=== PATIENT | male | born 1955 | race Caucasian/White ===

== ENCOUNTER 2018-04-29 08:45 | Observation (INO) | payer OTHER, BC ==
[2018-04-29 09:22] LABS: #Basophils 0.1 thou/uL (0.0-0.2); #Eosinphils 0.1 thou/uL (0.0-0.7); #Lymphocytes 2.5 thou/uL (1.20-3.40); #Monocytes 0.4 thou/uL (0.11-0.59); #Neutrophils 2.7 thou/uL (1.40-6.50); %Basophils 1.1 % (0.0-1.0); %Eosinophils 2.1 % (0.0-10.0); %Lymphocytes 43.3 % (21.0-51.0); %Monocytes 7.3 % (0.0-10.0); %Neutrophils 46.2 % (42.0-75.0); Hemoglobin 16.1 g/dL (14.0-18.0); Mean Corpuscular Hemoglobin 33.3 pg (27.0-31.0); Mean Corpuscular Volume 94.9 fL (78.0-98.0); Mean Platelet Volume 6.7 fL (7.4-10.4); Platelet Count 288 thou/uL (130-400); RBC Distribution Width 11.5 % (11.5-14.5); Red Blood Cell (RBC) Count 4.85 mill/uL (4.70-6.10); White Blood Cell (WBC) Count 5.7 thou/uL (4.8-10.8)
--- NOTE | 2018-04-29 09:32 | CT ---
NONCONTRAST HEAD CT: History: Syncopal episode. Comparison: None. Technique: Noncontrast head CT is performed from skull base to skull vertex. FINDINGS: No parenchymal hemorrhage. No extraaxial hematoma. No midline shift. Basilar cisterns are patent. Bra in volume is age appropriate. Cortical vasquez white matter differentiation is preserved. Ventricles and sulci are patent and symmetric. Adequate aeration of the sinuses and mastoid air cells. Calvarium is intact. IMPRESSION: No acute intracranial process. POS: [facility]
[2018-04-29 09:38] LABS: ALT (SGPT) 19 U/L (8-55); AST (SGOT) 17 U/L (5-34); Albumin 4.1 g/dL (3.4-4.8); Alkaline Phosphatase 68 U/L (40-150); Anion Gap 9 mmol/L (10-20); BUN (Urea Nitrogen) 19 mg/dL (8.4-25.7); Bilirubin, Total 0.8 mg/dL (0.2-1.2); CK (CPK) 60 U/L (30-200); Calc. Creatinine Clearance 0 mL/min (70-130); Calcium 9.4 mg/dL (7.8-10.44); Carbon Dioxide 30 mmol/L (23-31); Chloride 104 mmol/L (98-107); Estimated GFR-MDRD 90; Globulin 2.8 g/dL (2.4-3.5); Glucose 114 mg/dL (80-115); Lipase 23 U/L (8-78); Potassium 3.7 mmol/L (3.5-5.1); Protein, Total 6.9 g/dL (5.8-8.1); Sodium 139 mmol/L (136-145)
--- NOTE | 2018-04-29 09:40 | RAD ---
SINGLE VIEW OF THE CHEST: Comparison: None. History: Syncope, collapse. FINDINGS: Single view of the chest shows a normal sized cardiomediastinal silhouette. There is no evidence of c onsolidation, mass, or pleural effusion. The bones are unremarkable. IMPRESSION: No evidence of acute cardiopulmonary disease. POS: [facility]
--- NOTE | 2018-04-29 09:40 | RAD ---
FOUR VIEWS LEFT ELBOW: Comparison: None. History: Fall in the bathroom with left elbow trauma and pain. FINDINGS: Four views of the left elbow shows no evidence of acute fracture or dislocation. No elbow effusion is seen. No degenerative changes are present. IMPRESSION: Unremarkable exam. POS: [facility]
[2018-04-29 11:12] LABS: Bilirubin Negative (Negative); Blood, Urine Negative (Negative); Clarity CLEAR (Clear); Glucose, Urine (Dipstick) Negative (Negative); Leukocyte Negative (Negative); Nitrite Negative (Negative); Protein, Urine (Dipstick) Negative (Neg-Trace); Specific Gravity, Urine 1.026 (1.002-1.036); Urobilinogen 0.2 mg/dL (0.2-1.0); pH, Urine 5.5 (5.0-9.0)
[2018-04-29 12:56] LABS: Troponin I Less than 0.010 ng/mL (< 0.028)
[2018-04-29] MEDS ORDERED: Ondansetron ODT 4 MG TAB SL PRN (13:47)
[2018-04-29] MEDS ORDERED: Ondansetron PF 4 MG/2 ML Vial IVP PRN ×2 (13:47→15:13)
[2018-04-29] MEDS ORDERED: Acetaminophen 325 MG TAB PO PRN ×2 (13:47→15:13)
[2018-04-29 13:50] VITALS: BMI 24.5
[2018-04-29] MEDS ORDERED: Calcium Carbonate 500 MG ChewTAB PO PRN (15:13)
[2018-04-29] MEDS ORDERED: Ondansetron ODT 4 MG TAB PO PRN (15:13)
[2018-04-29] MEDS ORDERED: Senokot S 8.6-50 MG TAB PO PRN (15:13)
[2018-04-29] MEDS ORDERED: Nitroglycerin 0.4 MG TAB (25 Tab Bottle) PO PRN (15:13)
[2018-04-29 17:11] LABS: Troponin I Less than 0.010 ng/mL (< 0.028)
--- NOTE | 2018-04-29 19:25 | ULT ---
CAROTID ULTRASOUND 04/29/18 COMPARISON: None. HISTORY: Syncope. TECHNIQUE: Multiplanar vasquez scale and color doppler images were obtained in a carotid ultrasound. Spectral yvonne sis of the doppler waveforms were performed. No significant plaque is seen in either common or internal carotid artery. The doppler waveforms are normal bilaterally. Peak systolic velocity in the right ICA is 92 cm/s. Peak systolic velocity in the right CCA is 112 cm /s. The right ICA/CCA ratio is 0.8. Peak systolic velocity in the left ICA is 104 cm/s. Peak systolic velocity in the left CCA is 125 cm/ s. The left ICA/CCA ratio is 0.8. Both vertebral arteries demonstrate antegrade flow without focal stenosis. IMPRESSION: No evidence of hemodynamically significant stenosis. POS: [facility]
--- NOTE | 2018-04-30 00:46 | HP ---
PRIMARY CARE PHYSICIAN: Out of town physician in [place]. CODE STATUS: Full code. CHIEF COMPLAINT: Syncopal episode. HISTORY OF PRESENT ILLNESS: Mr. Mcintosh is a pleasant 63-year-old male with past medical history of hypertension, he had stated that he is a fairly healthy amelie. He was recently started on amlodipine 2.5 mg daily for high blood pressure. He states early this morning, he was woken out of his sleep with a leg cramp, which he tends to get chronically. He had then walked over to the bathroom and as he was trying to urinate, he went to turn and ended up collapsing on the floor. He states he has very little memory of this episode, he had stated that he woke up on the ground and he sat up on the bathroom floor. He had reported some diaphoresis at that time. He had denied any pain, denied headache, blurred vision, dizziness, chest pain, shortness of breath or abdominal pain. He had denied any nausea or vomiting. He states his significant other, Geena, had then called for an ambulance and then he proceeded to go to the ER. Upon arrival to [facility], his blood pressure was found to be elevated at 162/98. While sitting in the ER, this had then improved to 135/99. He had denied any further complaints at that time. He denied chest pain, shortness of breath, or abdominal pain. No dizziness or headache. His left elbow was found to be tender to palpation, unlikely secondary to fall. However, elbow x-ray was obtained and was unremarkable and showed no evidence of acute fracture or dislocation. CT of brain was also obtained and found no acute intracranial process. Chest x-ray was also obtained and showed no evidence of acute cardiopulmonary disease. His labs were found to be essentially unremarkable. However, his prolactin was found elevated at 30.56. This was a concern for possible seizure. Therefore, it was determined that patient would be admitted under observation for further workup of his symptoms. PAST MEDICAL HISTORY: Hypertension, hyperlipidemia, not on medication. 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 PSYCHIATRIC HISTORY: Denies any psychiatric history at this time. SOCIAL HISTORY: Does report social alcohol use, however, this is very rarely with 1 to 3 drinks possibly every other month. He denies drug use or tobacco use. REVIEW OF SYSTEMS: CONSTITUTIONAL: Denies fever or chills. Denies any weight loss or weight gain. EYES: Denies any eye redness, eye discharge, eye changes, or vision changes. ENT: Denies any sore throat or trouble swallowing. Denies any ringing in his ears or loss of hearing. CARDIOVASCULAR: Denies chest pain or palpitations. Does report some elevated blood pressure, for which he takes amlodipine. RESPIRATORY: Denies cough, shortness of breath, or wheezing. GASTROINTESTINAL: Denies abdominal pain, constipation, nausea, vomiting, or diarrhea. MUSCULOSKELETAL: Did report a muscle spasm in his leg. However, he states he gets this all the time, which was just mild and has since resolved since arriving to the hospital. Denies weakness or further pain. SKIN: Denies any rash, redness, or lesions. NEUROLOGICAL: Denies any focal weakness. Denies any history of seizure, did report a syncopal episode early this morning in the bathroom. However, no history of syncopal like episode in the past. PSYCHIATRIC: Denies any anxiety and depression. No suicidal or homicidal ideation at this time. ALLERGIES: NO KNOWN DRUG ALLERGIES. HOME MEDICATIONS: Amlodipine 2.5 mg p.o. daily. PHYSICAL EXAMINATION: VITAL SIGNS: BP 126/66, pulse 65, respirations 12, temperature 98 degrees Fahrenheit, O2 saturations 99% on room air. General: Alert and oriented x3. No acute distress noted. HEAD: Atraumatic, normocephalic. ENT: Pupils round, reactive to light. Extraocular muscles intact. Nose and throat are clear. Oropharynx is without erythema or exudates. Trachea midline. Uvula midline. NECK: Supple. No bruits. CARDIOVASCULAR: Positive S1, S2. Regular rate and rhythm. No murmur noted. RESPIRATORY: Clear to auscultation bilaterally. No wheezes, no rhonchi noted. MUSCULOSKELETAL: Strength 5+ bilaterally upper and lower extremities. Moves all extremities equally. Pedal pulses 2+ bilaterally. Radial pulses 2+ bilaterally. No edema noted. ABDOMEN: Soft, nontender. Bowel sounds present. No rebound. No rigidity. SKIN: Warm, dry, and intact. No lesions. No bruising noted. NEUROLOGIC: Cranial nerves 2-12 intact. No focal deficits noted. Deep tendon reflexes intact. Strength 5+ bilaterally. PSYCHIATRIC: Good mood and affect. LABORATORY DATA: WBC 5.7, RBC 4.85, hemoglobin 16.1, sodium 139, potassium 3.7, creatinine 0.86, estimated GFR 90, glucose 101, magnesium 2.5, AST 17, ALT 19, alkaline phosphatase 68, creatine kinase 60. Troponin less than 0.010 x3. Lipase 23. Prolactin 30.56. Urinalysis showed trace ketones, otherwise unremarkable. DIAGNOSTIC IMAGING: Elbow x-ray was unremarkable and showed no acute fractures or dislocation. CT brain showed no acute intracranial process at this time. Chest x-ray showed no evidence of acute cardiopulmonary disease. ASSESSMENT/PLAN: 1. Syncope, possibility of seizure with an elevated prolactin level of 30.56. We will recheck prolactin in the morning. We will order echocardiogram and carotid Dopplers to rule out cardiogenic causes. We will place consult for Neurology Services, Dr. Mcguire for further evaluation and recommendations. 2. Hypertension. Check orthostatic vital signs to rule out orthostatic hypotension that could have caused his syncopal episode, continue his home medication of amlodipine 2.5 mg daily. Had IV hydralazine as needed for systolic blood pressure greater than 170. Further changes pending the patient progress and workup. Start on aspirin 325 mg p.o. daily. 3. Deep venous thrombosis prophylaxis with SCDs, placed the patient on walking program. 4. GI prophylaxis with Tums as needed for heartburn or indigestion and started on Zofran as needed for nausea. DISPOSITION: Further medical management and disposition pending patient progress and workup. Job ID: [id number]
--- NOTE | 2018-04-30 00:59 | CON ---
DATE OF CONSULTATION: 04/29/2018 TYPE OF CONSULTATION: Neurology CONSULTING PHYSICIAN: Hospitalist Service. IMPRESSION: Syncope. PLAN: Monitor blood pressure and followup with his cleaning associate. HISTORY OF PRESENT ILLNESS: Mr. Mcintosh is a 63-year-old man, who is a professor at the [employer]. He reports being started on amlodipine about a week ago. He had developed some calf cramps and jumped up from the bed the morning prior to admission. He was trying to walk them off and then started to feel woozy. His grabbed him and to stabilize him. He became pale, cold, clammy, and ashen in appearance. She helped him slump down to the floor, where he lost a brief interval of time. He awoke while sitting on the floor and she helped him up. He thought he needed to urinate and so she left the room. He was standing at the toilet when he suddenly lost consciousness again. She heard a thump and ran back in to find him prone on the floor. There was no seizure activity. Again, he was cold and clammy when she examined him. She did not check his vital signs. EMS was called and he was brought into the hospital. He was told his blood pressure was low, but then came back to normal. He denies any similar events like this. He has no past neurologic history. His CT of the brain was unremarkable. He had an EEG done, which was also normal in appearance without any epileptiform features. His prolactin level was 30. Remainder of his lab work was unremarkable. PAST MEDICAL HISTORY: Hypertension. ALLERGIES: NONE. SOCIAL HISTORY: No tobacco or drug use. FAMILY HISTORY: Noncontributory. MEDICATION LIST: Reviewed. REVIEW OF SYSTEMS: No complaint of headache, nausea, vomiting, vertigo, slurred speech, chest pain, palpitations, or shortness of breath. PHYSICAL EXAMINATION: GENERAL: He is a healthy-appearing middle-aged man, in no distress. VITAL SIGNS: Stable and he is afebrile. HEENT: Within normal limits. NECK: Supple. EXTREMITIES: No cyanosis. NEUROLOGIC: Alert and appropriate. His speech is fluent and clear. His exam is nonfocal. SUMMARY: A middle-aged man recently started on amlodipine, who had a syncopal episode when he first got out of bed in the morning. His workup neurologically is unremarkable. His EKG shows normal sinus rhythm. I suspect that he had a vasovagal event. I do not see any need for further neurologic workup. Job ID: [id number]
[2018-04-30] MEDS ORDERED: Amlodipine 5 MG TAB PO SCH (09:00)
[2018-04-30] MEDS ORDERED: Aspirin 325 MG TAB PO SCH (09:00)
[2018-04-30 13:06] VITALS: BP 153/78; TEMP 97.4
--- NOTE | 2018-04-30 14:31 | EEG ---
Referring Physician: PORUBSKY EEG # [id number] TEST TYPE: ROUTINE PORTABLE INPATIENT REPORT: AN EEG USING THE [employer]NATIONAL TEN-TWENTY SYSTEM OF ELECTRODE PLACEMENT WAS PERFORMED. The waking background is a 9 hertz alpha frequency. The patient became drowsy, but no sleep was seen. Hyperventilation and photic stimulation were unremarkable. No epileptiform features were present. IMPRESSION: THIS IS A NORMAL AWAKE AND DROWSY EEG. Manager Star: APRIL Land Commissioner: EEG.SATHISH DELGADO
--- NOTE | 2018-04-30 15:37 | EKG ---
Test Reason : Blood Pressure : / mmHG Vent. Rate : 055 BPM Atrial Rate : 055 BPM P-R Int : 176 ms QRS Dur : 094 ms QT Int : 448 ms P-R-T Axes : 064 061 054 degrees QTc Int : 428 ms Sinus bradycardia Otherwise normal ECG Confirmed by JENNIFER SRIVASTAVA ([id number]), television news video editor KADE CERDA ([id number]) on 04/30/2018 3:37:07 PM Referred By: Confirmed By:JENNIFER SRIVASTAVA
== END 2018-04-30 14:01 | disposition home or self-care (01) ==
LOC: ERS 08:45 → 2SW 11:08
PROVIDERS: ADMIT Family Medicine; ATTEND Family Medicine
DX: R55 Syncope and collapse (principal); I10 Essential (primary) hypertension; E78.5 Hyperlipidemia, unspecified; Z98.890 Other specified postprocedural states
CPT/HCPCS: 36415; 36416; 70450; 71045; 80053; 81003; 82550; 83690; 83735; 84146; 84484; 85025; 93005; 93306; 93880; 94760; 95816; 95819; G0378

== ENCOUNTER 2020-07-09 06:41 | Emergency (ER) | payer BC ==
[2020-07-09 07:19] LABS: #Basophils 0.1 thou/uL (0.0-0.2); #Eosinphils 0.2 thou/uL (0.0-0.7); #Lymphocytes 3.6 thou/uL (1.20-3.40); #Monocytes 0.6 thou/uL (0.11-0.59); %Basophils 1.4 % (0.0-1.0); %Eosinophils 2.9 % (0.0-10.0); %Lymphocytes 47.7 % (21.0-51.0); %Monocytes 8.1 % (0.0-10.0); Hemoglobin 14.9 g/dL (14.0-18.0); Mean Corpuscular HGB CONC 33.8 g/dL (32.0-36.0); Mean Corpuscular Hemoglobin 32.2 pg (27.0-31.0); Mean Corpuscular Volume 95.2 fL (78.0-98.0); Mean Platelet Volume 6.6 fL (7.4-10.4); Platelet Count 261 thou/uL (130-400); RBC Distribution Width 11.5 % (11.5-14.5); Red Blood Cell (RBC) Count 4.63 mill/uL (4.70-6.10); White Blood Cell (WBC) Count 7.6 thou/uL (4.8-10.8)
[2020-07-09 07:41] LABS: ALT (SGPT) 22 U/L (8-55); AST (SGOT) 21 U/L (5-34); Alkaline Phosphatase 68 U/L (40-110); Anion Gap 11 mmol/L (10-20); BUN (Urea Nitrogen) 14 mg/dL (8.4-25.7); Bilirubin, Total 0.3 mg/dL (0.2-1.2); Calc. Creatinine Clearance 0 mL/min (70-130); Calcium 8.8 mg/dL (7.8-10.44); Carbon Dioxide 30 mmol/L (23-31); Chloride 104 mmol/L (98-107); Globulin 2.4 g/dL (2.4-3.5); Glucose 119 mg/dL (80-115); Potassium 4.3 mmol/L (3.5-5.1); Protein, Total 6.4 g/dL (5.8-8.1); Sodium 141 mmol/L (136-145)
--- NOTE | 2020-07-09 07:47 | CT ---
CT Brain WO Con History: Fall. Trauma Comparison: CT brain April 29, 2018 Findings: Likely nondisplaced right infraorbital rim fracture. There is also a minimally displaced fr acture of the right lateral orbital wall. Mildly impacted fracture of the right zygomatic arch. No definite retrobulbar hematoma. No acute hemorrhage or infarct. No midline shift or mass effect. No medial orbital wall fracture. The left zygomaticomaxillary complex is intact. Pterygoid plates are intact as well as nasal bones. Impression: Right zygomaticomaxillary complex fracture without acute posttraumatic intracranial seque la.
--- NOTE | 2020-07-09 07:54 | CT ---
CT Facial Bones WO Con History: Fall Comparison: None. Findings: Minimally medially displaced right lateral orbital wall fracture. Fracture of the right zyg omatic arch with mild impaction. Also fracture of the right anterior maxillary sinus wall extending to the infraorbital rim without significant displacement. Fracture extends into the infraorbital fora men anteriorly. Fracture is also present of the lateral maxillary sinus wall extending in a caudal direction to the a lveolar bone of the missing first right maxillary molar. The mandible itself is intact. Normal location of the temporomandibular joints. Cervical spine alignm ent is maintained. Moderate narrowing of the atlantodental interval with mild ossification of the apical ligaments. Impression: Right zygomaticomaxillary complex fracture with the lateral maxillary sinus fracture exte nding into the alveolar bone at the missing tooth socket right maxillary first molar. No retrobulbar hematoma or exophthalmos.
[2020-07-09] MEDS ORDERED: Ketorolac Tromethamine 30 MG/ML VIAL ONE (08:18)
[2020-07-09 08:42] LABS: Bilirubin Negative (Negative); Blood, Urine Negative (Negative); Clarity Clear (Clear); Glucose, Urine (Dipstick) Normal (Negative); Ketone, Urine Negative (Negative); Leukocyte Negative Leu/uL (Negative); Nitrite Negative (Negative); Protein, Urine (Dipstick) Negative (Neg-Trace); Urobilinogen Normal mg/dL (Less than 2); pH, Urine 7.5 (5.0-9.0)
== END 2020-07-09 09:15 | disposition home or self-care (01) ==
LOC: ERS 06:41
DX: R55 Syncope and collapse (principal); S02.40EA Zygomatic fracture, right side, initial encounter for closed fracture; S02.42XA Fracture of alveolus of maxilla, initial encounter for closed fracture; E78.5 Hyperlipidemia, unspecified; E78.00 Pure hypercholesterolemia, unspecified; I10 Essential (primary) hypertension; W01.198A Fall on same level from slipping, tripping and stumbling with subsequent striking against other object, initial encounter
CPT/HCPCS: 70450; 70486; 80053; 81003; 84146; 85025; 93005; 96374; J1885

== ENCOUNTER 2021-01-21 10:32 | Emergency (ER) | payer BC, OTHER ==
[2021-01-21] MEDS ORDERED: Ketorolac Tromethamine 30 MG/ML VIAL ONE (11:40)
[2021-01-21] MEDS ORDERED: Boostrix 0.5 ML (Tdap) VIAL ONE (11:40)
[2021-01-21] MEDS ORDERED: Acetaminophen 500 MG TAB ONE (11:40)
== END 2021-01-21 12:11 | disposition home or self-care (01) ==
LOC: ERS 10:32
DX: S70.12XA Contusion of left thigh, initial encounter (principal); S50.812A Abrasion of left forearm, initial encounter; S60.512A Abrasion of left hand, initial encounter; S80.212A Abrasion, left knee, initial encounter; S80.211A Abrasion, right knee, initial encounter; E78.5 Hyperlipidemia, unspecified; E78.00 Pure hypercholesterolemia, unspecified; I10 Essential (primary) hypertension; Z23 Encounter for immunization; V19.9XXA Pedal cyclist (driver) (passenger) injured in unspecified traffic accident, initial encounter
CPT/HCPCS: 90471; 90715; 96372; J1885